=== PATIENT | female | born 1995 | race Caucasian/White ===

== ENCOUNTER 2021-05-08 13:04 | Outpatient (CLI) | payer OTHER, SELFPAY ==
--- NOTE | ~2021-05-08 | US_ITS ---
US OB <= 14 weeks fetus DATE: 05/08/2021 13:33 INDICATION: Unsure of last menstrual period. Estimated gestational age determination. TECHNIQUE: Real-time imaging via transabdominal approach COMPARISON: None FINDINGS: Uterus measures 11.1 cm height, 4.9 cm anteroposterior and 5.9 cm transverse dimension. A n ormally shaped intrauterine gestational sac with normal surrounding hyperechogenicity consistent with decidual reaction is identified. Normal amount of amniotic fluid. pole and yolk sac are identi fied. heart rate of 162 bpm. [place]-rump length measurement is 1.92 cm, consistent with 8 weeks 3 days +/- 5 days estimated gestati onal age and JOSE MIGUEL of 12/15/2021. IMPRESSION: Estimated gestational age of 8 weeks 3 days +/- 5 days; JOSE MIGUEL: 12/15/2021. Reviewed, dictated and finalized at [facility]. Reviewed, dictated and finalized at location [facility]. IMPRESSION: Estimated gestational age of 8 weeks 3 days +/- 5 days; JOSE MIGUEL: 12/16/19 22.
== END 2021-05-08 13:05 ==
PROVIDERS: Visit Provider Obstetrics & Gynecology
DX: Z36.87 Encounter for antenatal screening for uncertain dates (principal); Z3A.08 8 weeks gestation of pregnancy
CPT/HCPCS: 76801

== ENCOUNTER 2021-05-25 13:30 | Outpatient (CLI) | payer OTHER, SELFPAY ==
[2021-05-25 14:16] LABS: Basophils Absolute Auto 0.1 K/mm3 (0.0-0.1); Basophils Percent Auto 0.5 % (0.2-1.2); Eosinophils Absolute Auto 0.1 K/mm3 (0-0.3); Eosinophils Percent Auto 1.4 % (0-4.4); Hematocrit 38.9 % (37.0-47.0); Hemoglobin 13.1 g/dL (12.0-15.0); Immature Granulocyte Absolute 0.04 K/mm3 (0.00-0.031); Immature Granulocyte Percent A 0.4 % (0-0.5); Lymphocytes Absolute Auto 2.59 K/mm3 (0.9-3.2); Lymphocytes Percent Auto 25.6 % (18.3-44.2); Mean Corpuscular HGB Conc 33.7 g/dl (32-36); Mean Corpuscular Hemoglobin 31.4 pg (26-34); Mean Corpuscular Volume 93.3 fl (80-100); Mean Platelet Volume 11.5 fl (7.4-10.4); Monocytes Absolute Auto 0.7 K/mm3 (0.1-0.6); Monocytes Percent Auto 6.9 % (2.6-8.5); Neutrophils Absolute Auto 6.6 K/mm3 (1.3-6.7); Neutrophils Percent Auto 65.2 % (45.5-73.1); Platelet Count Result 175 k/mm3 (150-375); Red Blood Count 4.17 M/mm3 (4.2-5.4); White Blood Count 10.1 K/mm3 (4.5-10.0)
[2021-05-25 14:54] LABS: Vitamin D 25 Hydroxy 24.7 ng/mL
[2021-05-25 15:05] LABS: HIV 1/2 Ab P24 Ag Result Negative (Negative)
[2021-05-25 15:13] LABS: Hepatitis B Surface Antigen Negative (Negative); Rubella IgG Antibody 12.2 IU/ML
[2021-05-25 15:51] LABS: Hemoglobin A1C 4.9 % (<5.7)
[2021-05-28 09:30] LABS: Rapid Plasma Reagin Non-Reactive (NonReactive)
[2021-05-30 06:06] LABS: Hepatitis C RNA, Quant PCR <15 IU/mL
== END 2021-05-25 13:31 | disposition home or self-care (01) ==
PROVIDERS: Visit Provider Nurse Practitioner
DX: Z36.9 Encounter for antenatal screening, unspecified (principal)
CPT/HCPCS: 36415; 82306; 83036; 85025; 86592; 86703; 86762; 86850; 86900; 86901; 87340; 87522; G0432

== ENCOUNTER 2021-07-13 13:20 | Outpatient (CLI) | payer OTHER, SELFPAY ==
--- NOTE | ~2021-07-13 | US_ITS ---
EXAMINATION: US OB /maternal detail DATE: 07/13/2021 13:54 INDICATION: survey evaluation TECHNIQUE: Multiple obstetric sonographic images performed. FINDINGS: Comparison to ultrasound dated 05/08/2021 There is a single living fetus in breech presentation. The placenta is posterior without placenta pr evia. Placental margin is 2.8 cm to the cervix. Amniotic fluid volume is normal. cardiac activity and movement is noted with a heart rate of 138 beats per minute. The following anatomy was identified as normal: 4 chamber heart 3 vessel cord cord insertion kidneys urinary bladder stomach spine diaphragm ventricles cisterna magna cerebellum The following biometric data were obtained: BPD: 42mm corresponds to gestational age 18 weeks 6 days. Head circumference: 161 mm corresponds to gestational age 18 weeks 6 days. Abdominal circumference: 131 mm corresponds to gestational age 18 weeks 4 days. Femur length: 26 mm corresponds to gestational age 18 weeks 0 days. Head circumference to abdominal circumference ratio: 1.23 (normal range for expected gestational age is 1.09-1.27). Estimated weight: 238 grams +/- 36 grams using Hadlock method. IMPRESSION: 1: Single living intrauterine with an estimated gestational age of 17weeks 6days by initial ultrasound measurements, with an EDC of 12/15/2021 in breech presentation. Appropriate interval feta l growth. 2. Normal survey. Reviewed, dictated and finalized at location A. IMPRESSION: 1: Single living intrauterine with an estimated gestational age of 17 weeks 6days by initial ultrasound measurements, with an EDC of 12/15/2021 in br eech presentation. Appropriate interval growth. 2. Normal survey.
== END 2021-07-13 13:21 ==
PROVIDERS: Visit Provider Obstetrics & Gynecology
DX: Z36.9 Encounter for antenatal screening, unspecified (principal); Z3A.17 17 weeks gestation of pregnancy
CPT/HCPCS: 76805

== ENCOUNTER 2021-09-28 14:03 | Outpatient (CLI) | payer OTHER, SELFPAY ==
[2021-09-28 15:21] LABS: Hematocrit 34.4 % (37.0-47.0); Hemoglobin 11.3 g/dL (12.0-15.0); Mean Corpuscular HGB Conc 32.8 g/dl (32-36); Mean Corpuscular Hemoglobin 30.2 pg (26-34); Mean Platelet Volume 12.4 fl (7.4-10.4); Platelet Count Result 133 k/mm3 (150-375); Red Blood Count 3.74 M/mm3 (4.2-5.4); Red Cell Distribution Width 14.3 % (11.5-14.5); White Blood Count 10.7 K/mm3 (4.5-10.0)
[2021-09-28 15:36] LABS: Glucose 1 Hour PP 50gm Dose 152 mg/dL
[2021-09-28 15:54] LABS: Vitamin D 25 Hydroxy 23.8 ng/mL
[2021-09-28 16:18] LABS: HIV 1/2 Ab P24 Ag Result Negative (Negative)
== END 2021-09-28 14:04 | disposition home or self-care (01) ==
PROVIDERS: Visit Provider Obstetrics & Gynecology Gynecology
DX: Z34.92 Encounter for supervision of normal pregnancy, unspecified, second trimester (principal)
CPT/HCPCS: 36415; 82306; 82947; 85027; 86703; G0432

== ENCOUNTER 2021-10-06 09:23 | Outpatient (CLI) | payer OTHER, SELFPAY ==
[2021-10-06 09:48] LABS: Glucose Fasting 88 mg/dL
[2021-10-06 11:20] LABS: Glucose 1 Hour 139 mg/dL
[2021-10-06 12:08] LABS: Glucose 2 Hour 137 mg/dL
[2021-10-06 13:04] LABS: Glucose 3 Hour 109 mg/dL
== END 2021-10-06 09:24 | disposition home or self-care (01) ==
PROVIDERS: Visit Provider Obstetrics & Gynecology Gynecology
DX: O99.810 Abnormal glucose complicating pregnancy (principal); Z3A.00 Weeks of gestation of pregnancy not specified
CPT/HCPCS: 36415; 82951; 82952

== ENCOUNTER 2021-12-08 05:03 | Inpatient (IN) | payer OTHER, MEDICAID, SELFPAY ==
[2021-12-08] VITALS (197 sets, daily range): BP systolic 67–145; BP diastolic 34–94; PULSE 55–197; RESP 18; TEMP 36.1–37.9; O2SAT 84–100; BMI 43.3
[2021-12-08 06:00] LABS: Basophils Absolute Auto 0.1 K/mm3 (0.0-0.1); Basophils Percent Auto 0.5 % (0.2-1.2); Eosinophils Absolute Auto 0.2 K/mm3 (0-0.3); Eosinophils Percent Auto 1.4 % (0-4.4); Hematocrit 34.7 % (37.0-47.0); Hemoglobin 11.4 g/dL (12.0-15.0); Immature Granulocyte Percent A 0.8 % (0-0.5); Lymphocytes Percent Auto 21.2 % (18.3-44.2); Mean Corpuscular HGB Conc 32.9 g/dl (32-36); Mean Corpuscular Hemoglobin 29.1 pg (26-34); Mean Corpuscular Volume 88.5 fl (80-100); Mean Platelet Volume 12.3 fl (7.4-10.4); Monocytes Absolute Auto 0.8 K/mm3 (0.1-0.6); Monocytes Percent Auto 6.9 % (2.6-8.5); Neutrophils Absolute Auto 8.2 K/mm3 (1.3-6.7); Neutrophils Percent Auto 69.2 % (45.5-73.1); Platelet Count Result 146 k/mm3 (150-375); Red Blood Count 3.92 M/mm3 (4.2-5.4); Red Cell Distribution Width 14.8 % (11.5-14.5); White Blood Count 11.8 K/mm3 (4.5-10.0)
[2021-12-08] MEDS: LACTATED RINGERS 1,000 ML 125 ML IV CONT ×2 (06:08→11:48)
[2021-12-08] MEDS: OXYTOCIN 30 UNITS/NS 500 ML 30 UNITS/500 ML BAG IV CONT (06:09)
--- NOTE | 2021-12-08 06:26 | LDADM ---
This patient, Nancy Dumont, was admitted to Labor/Delivery/Recovery 104 on 12/08/21 at 05:03. Plans for labor, pain management and were discussed with patient. Patient/family oriented to hospital policies and general routines including ID bracelet, bed and alarms, visiting hours, pain management, procedures, bathroom and other care routines, personal items, smoking policy, room service/diet and guest tray routines, infant security routines, and visiting hours. Patient/Family are encouraged to report perceived risks to care and to ask questions if they do not understand what they are told or what they should do. See OBIX for further documentation.
[2021-12-08 06:52] LABS: HIV 1/2 Ab P24 Ag Result Negative (Negative)
[2021-12-08] MEDS: LACTATED RINGERS 1,000 ML 999 ML IV CONT (10:13)
--- NOTE | 2021-12-08 10:34 | WPDOBADMIT ---
Obstetrics - Admit Note Admission Note: record reviewed. No pertinent additions to the history and/or any subsequent changes in the physical findings that are not consistent with the expected course of the were found. Additions to the history and/or subsequent changes in the physical findings follow. Here for MIL. Cervix 2/70/-2 Anterior. AROM with clear fluid. FHTs reactive. Continue pitocin.
--- NOTE | 2021-12-08 10:40 | WPDANESEPPF ---
Anes - Initial Pre Proc Eval Procedure: labor epidural Date/Time: 12/08/21 10:40 Surgeon: Maria Elena Mehta MD Pre Op Diagnosis: labor pain Pre Op Diagnosis: IOL Patient Data Age: 26 Gender: F Height: 1.55 m Weight: 104 kg Last Vital Signs Temp 36.4 C 12/08/21 09:30 Pulse 74 12/08/21 10:38 BP 132/75 12/08/21 10:38 Pulse Ox 98 12/08/21 10:36 Allergies Allergy/AdvReac Type Severity Reaction Status Date / Time shellfish derived Allergy Severe Verified 11/08/15 21:14 latex Allergy Mild Verified 11/08/15 21:13 PINK SOAP Allergy Mild Uncoded 11/08/15 21:13 Home Medications Medication Instructions Recorded Confirmed Type PNV cmb#95-ferrous fumarate-FA 1 tablet PO DAILY 11/16/21 11/16/21 History [] ergocalciferol (vitamin D2) 1,250 mcg PO 12/08/21 History Laboratory Tests 12/08/21 12/08/21 12/08/21 05:53 05:53 05:53 WBC 11.8 K/mm3 H K/mm3 (4.5-10.0) RBC 3.92 M/mm3 L M/mm3 (4.2-5.4) Hgb 11.4 g/dL L g/dL (12.0-15.0) Hct 34.7 % L % (37.0-47.0) MCV 88.5 fl fl (80-100) MCH 29.1 pg pg (26-34) MCHC 32.9 g/dl g/dl (32-36) RDW 14.8 % H % (11.5-14.5) Plt Count 146 k/mm3 L k/mm3 (150-375) MPV 12.3 fl H fl (7.4-10.4) Immature Gran % (Auto) 0.8 % H % (0-0.5) Neut % (Auto) 69.2 % % (45.5-73.1) Lymph % (Auto) 21.2 % % (18.3-44.2) Divide % (Auto) 6.9 % % (2.6-8.5) Eos % (Auto) 1.4 % % (0-4.4) Baso % (Auto) 0.5 % % (0.2-1.2) Lymph # (Auto) 2.50 K/mm3 K/mm3 (0.9-3.2) Divide # (Auto) 0.8 K/mm3 H K/mm3 (0.1-0.6) Eos # (Auto) 0.2 K/mm3 K/mm3 (0-0.3) Baso # (Auto) 0.1 K/mm3 K/mm3 (0.0-0.1) Abs Immat Gran (auto) 0.10 K/mm3 H K/mm3 (0.00-0.031) Absolute Neuts (auto) 8.2 K/mm3 H K/mm3 (1.3-6.7) Absolute Nucleated RBC 0.0 K/mm3 K/mm3 (0.0-0.012) Nucleated RBC % 0.0 % % (0.0-0.2) RPR Pending HIV 1&2 Ab/P24 Ag 4thGn Blood Type O Positive Antibody Screen Negative 12/08/21 05:53 WBC RBC Hgb Hct MCV MCH MCHC RDW Plt Count MPV Immature Gran % (Auto) Neut % (Auto) Lymph % (Auto) Divide % (Auto) Eos % (Auto) Baso % (Auto) Lymph # (Auto) Divide # (Auto) Eos # (Auto) Baso # (Auto) Abs Immat Gran (auto) Absolute Neuts (auto) Absolute Nucleated RBC Nucleated RBC % RPR HIV 1&2 Ab/P24 Ag 4thGn Negative (Negative) Blood Type Antibody Screen Patient hx anesthesia problems: none Family hx anesthesia problems: none Results Review: All pre-operative results and documents have been reviewed as part of the pre-operative evaluation. [facility] Family History Family History Other Diabetes mellitus Social History Social History Smoking status: Never smoker Second hand tobacco smoke exposure: No Substance use: never Spiritual care concerns: No Anes - Eval Final PreProcedure Day of Procedure 12/08/21 10:40 Patient weight: morbidly obese ASA classification: III Anesthesia type and monitoring: regional epidural and standard monitoring Results Review: All pre-operative results and documents have been reviewed as part of the pre-operative evaluation. Informed Consent: The patient's anesthetic plan and its attendant risks and benefits were discussed with the patient/family/POA. Questions were solicited and answers provided to the satisfaction of the patient/family/POA.
[2021-12-08] MEDS: ONDANSETRON INJ 4 MG/2 ML VIAL IV PUSH (20:31)
[2021-12-08] MEDS: METHYLERGONOVINE MALEATE 0.2 MG/ML VIAL IM (21:29)
[2021-12-08] MEDS: OXYTOCIN 30 UNITS/NS 500 ML 30 UNITS/500 ML BAG 250 UNITS IV CONT (21:37)
--- NOTE | 2021-12-08 21:40 | PM.OBPRVD ---
OB - Delivery Note Procedure Delivery date: 12/08/21 Procedure: Induction method: AROM and Per Pitocin Protocol Delivery monitor: External FHT and Internal Uterine Route of delivery: Laceration Description: Perineal - 2nd Degree Delivery repair: vicryl (3-0) Specimen: Yes (placenta) Quantitative Blood Loss (ml): 825 Anesthesia type: Epidural (Local for repair) Disposition: PACU Complications: The initial uterine atony responded to uterine massage and Pitocin. Secondary bleeding after repair responded again to massage and then also given Methergine x 1. Baby Date of : 12/08/21 Weeks of gestation at delivery: 39 gender: Male Weight (pounds): 9 Weight (ounces): 2 presentation: vertex position: Right Occiput Anterior Placenta delivery description: Spontaneous Cord Vessel Description: 3 Vessels score one minute: 7 score five minutes: 9
--- NOTE | 2021-12-08 21:46 | PM.OBDSVD ---
DS: Admitting Diagnosis Discharge Date 12/10/21 Admitting Diagnosis IUP 39 wks for MIL DS: Discharge Diagnosis Discharge Diagnosis (1) (normal spontaneous vaginal delivery): Code(s): O80 - Encounter for full-term uncomplicated delivery Status: Acute OB - DS: Summary OB Procedures : NST and Ultrasound OB Procedures Intrapartum: Spontaneous Vag Delivery OB Procedures: : None Peripartum Data Infant Delivery Method: Natural Vaginal Laceration Description: Perineal - 2nd Degree complications: uterine atony Status at Discharge Functional status at discharge: independent ambulation Overall status at discharge: patient is progressing back to baseline Time Spent with Patient Time attestation: Total time spent providing and/or coordinating discharge services: DS: Data Data Completed and Pending Labs on day of discharge: Labs from last 24 hours 12/08/21 12/08/21 12/08/21 05:53 05:53 05:53 WBC RBC Hgb Hct MCV MCH MCHC RDW Plt Count MPV Immature Gran % (Auto) Neut % (Auto) Lymph % (Auto) [place] % (Auto) Eos % (Auto) Baso % (Auto) Lymph # (Auto) [place] # (Auto) Eos # (Auto) Baso # (Auto) Abs Immat Gran (auto) Absolute Neuts (auto) Absolute Nucleated RBC Nucleated RBC % RPR Pending HIV 1&2 Ab/P24 Ag 4thGn Negative Blood Type O Positive Antibody Screen Negative 12/08/21 05:53 WBC 11.8 H RBC 3.92 L Hgb 11.4 L Hct 34.7 L MCV 88.5 MCH 29.1 MCHC 32.9 RDW 14.8 H Plt Count 146 L MPV 12.3 H Immature Gran % (Auto) 0.8 H Neut % (Auto) 69.2 Lymph % (Auto) 21.2 [place] % (Auto) 6.9 Eos % (Auto) 1.4 Baso % (Auto) 0.5 Lymph # (Auto) 2.50 [place] # (Auto) 0.8 H Eos # (Auto) 0.2 Baso # (Auto) 0.1 Abs Immat Gran (auto) 0.10 H Absolute Neuts (auto) 8.2 H Absolute Nucleated RBC 0.0 Nucleated RBC % 0.0 RPR HIV 1&2 Ab/P24 Ag 4thGn Blood Type Antibody Screen Discharge Plan Discharge Attending physician on discharge: Maria Elena Mehta Discharging Clinician: Maria Elena Mehta Anticipated Discharge Date/Time: 12/10/21 21:48 Patient Disposition: Home, Self-Care Activity: may shower and pelvic rest Diet: regular Patient Instructions: Antibiotic Form Stand Alone Forms: General Discharge Information Follow-up/Referrals: Maria Elena Mehta MD [Physician] - 6 Weeks Discharge Medications: No Action PNV cmb#95-ferrous fumarate-FA [] 28 mg iron- 800 mcg Tablet 1 tablet PO DAILY RF: 0 ergocalciferol (vitamin D2) 1,250 mcg (50,000 unit) capsule 1,250 mcg PO RF: 0 Date of admission: 12/08/21 05:03 Primary Care Provider: PHYSICIAN,[employer] Admitting Provider: Maria Elena Mehta Attending physician on admission: Maria Elena Mehta Condition: Stable
[2021-12-08] MEDS: ACETAMINOPHEN 325 MG TABLET 650 MG PO (23:17)
[2021-12-09] VITALS (8 sets, daily range): BP systolic 99–122; BP diastolic 60–76; PULSE 93–121; RESP 16–18; TEMP 36–36.9; O2SAT 98–99
[2021-12-09] MEDS: IBUPROFEN 600 MG TABLET PO ×3 (00:41→16:12)
[2021-12-09 05:48] LABS: Hematocrit 27.1 % (37.0-47.0)
[2021-12-09] MEDS: MULTIVIT/MIN/PREN/FOL AC/IRON TABLET 1 TAB PO (08:11)
[2021-12-09] MEDS: POLYSACCHARIDE IRON COMPLEX 150 MG CAPSULE PO ×2 (08:11→16:12)
[2021-12-09] MEDS: DOCUSATE SODIUM 100 MG CAPSULE PO ×2 (08:12→16:12)
--- NOTE | 2021-12-09 09:38 | PM.OBPNVD ---
OB - PN: Subj Subjective Date/time seen: 12/09/21 09:38 Patient comments: no complaints and pain well controlled baby status: doing well OB - PN: Obj Data Labs CBC & Chem 7: 12/09/21 04:59 Labs: Laboratory Results - last 24 hr 12/09/21 04:59 Hgb 9.0 L Hct 27.1 L OB - PN A/P Plan day: 1 Plan: routine care Time Spent With Patient Time: Total time spent is greater than 50% in coordination of care (as documented) at patient's floor/unit and/or counseling patient: Exam : Bimanual exam- vagina & uterus: other (Uterus firm, nt @U)
--- NOTE | 2021-12-09 10:52 | WPDANLDPN2 ---
Anes-Prog Note L&D Date/Time: 12/09/21 10:52 Comfortable throughout: labor and delivery Neuraxial method: epidural Epidural/Spinal procedure site: clean & non-tender Neuro status: Neuro function grossly intact. Cardiovascular status: normal Respiratory status: normal Airway patency: baseline Mental status: baseline Post-Op hydration status: normal Vital Signs: Last Vital Signs Temp 97.7 F 12/09/21 08:00 Pulse 93 12/09/21 08:00 Resp 16 12/09/21 08:00 BP 103/60 12/09/21 08:00 Pulse Ox 99 12/09/21 08:00 Pain score (VAS): 1 I/O: Intake & Output 12/08/21 12/09/21 12/09/21 23:59 07:59 15:59 Output Total 1600 65 Balance -1600 -65 Post-procedural complaints: none Patient feedback: Patient satisfied with anesthetic care.
--- NOTE | 2021-12-09 12:54 | PCCCNOTE ---
Care Coordination. Patient referred to care coordination for financial/single parenting. Spoke with pt. at bedside. She plans to return home with her two children alone. Her mother lives nearby. She denies any financial assistance needs. She reports family has showered her with clothes for up to 12 months. She has all necessary baby care items and is setup with WIC in [place]. She denies any post- with previous child and denies any community resource needs.
[2021-12-10 07:30] VITALS: BP 133/74; PULSE 112; RESP 18; TEMP 37; O2SAT 98
[2021-12-10] MEDS: DOCUSATE SODIUM 100 MG CAPSULE PO ×2 (07:42→16:32)
[2021-12-10] MEDS: MULTIVIT/MIN/PREN/FOL AC/IRON TABLET 1 TAB PO (07:42)
[2021-12-10] MEDS: POLYSACCHARIDE IRON COMPLEX 150 MG CAPSULE PO ×2 (07:43→16:32)
[2021-12-10] MEDS: IBUPROFEN 600 MG TABLET PO ×2 (07:43→16:32)
--- NOTE | 2021-12-10 08:01 | PM.OBPNVD ---
OB - PN: Subj Subjective Date/time seen: 12/10/21 08:01 Patient comments: no complaints baby status: doing well OB - PN: Obj Data Labs CBC & Chem 7: 12/09/21 04:59 OB - PN A/P Plan day: 1 Plan: routine care, discharge home, follow up 6 weeks and other (Plans depoprovera) Time Spent With Patient Time: Total time spent is greater than 50% in coordination of care (as documented) at patient's floor/unit and/or counseling patient: Exam : Bimanual exam- vagina & uterus: other (Uterus firm, nt @U)
--- NOTE | 2021-12-10 08:57 | PC.NURSE ---
[id number] Introductions were made and consulted with patient to assess needs related to . Mother led conversation with her experience with feeding baby so far. Mother states she has had difficulty with latching infant with the nipple shield. Her history of was her milk never came in . She is discouraged that with her last pump session she only got one drop of colostrum. She also states she started pumping last night. ( was born 11/10/2023 @ 2112) Reviewed good handwashing when working with infant, breast, nipples and how to protect the nipples with a deep latch. Encouraged understanding the benefits of skin to skin, responding to feeding cues, frequencies of feeding 8-12 times in 24 hours (approximately 2-3 hours), duration of feedings, milk production, intake/output feeding sheet and signs of adequate intake. Discussed stimulating with skin to skin, hand expressing colostrum, touch and talking to infant to encourage eating at the breast. Breast pump provided prior to RN shift due to ineffective . Reviewed information regarding pump care, hand washing, nipple care and pumping 8 times in 24 hours (1-2 at night) for 10-15 minutes. Collection and storage of breastmilk per mom and baby guide. Reviewed recording pumping schedule on the feeding sheet. Mother voiced understanding responding to early feeding cues, may need to stimulating infant approximately 2-3 hours from the start of the last feeding, calling for assistance if the infant does not latch or there discomfort . Reported to primary RN.
[2021-12-10] MEDS: medroxyPROGESTERone ACETATE IM 150 MG/ML SYR IM (11:49)
[2021-12-10 13:00] LABS: Rapid Plasma Reagin Non-Reactive (NonReactive)
--- NOTE | 2021-12-10 13:57 | PC.NURSE ---
[id number] Introductions were made and consulted with patient to assess needs related to . Mother led conversation with her experience with feeding baby so far and plans to , pump and supplement. Mother works well with her . Reviewed good handwashing when working with infant, breast, nipples and how to protect the nipples with a deep latch. Encouraged understanding the benefits of skin to skin, responding to feeding cues, frequencies of feeding 8-12 times in 24 hours (approximately 2-3 hours), duration of feedings, milk production, intake/output feeding sheet and signs of adequate intake. Discussed stimulating infant with skin to skin, hand expressing colostrum, touch and talking to infant to encourage eating at the breast. Reviewed positioning and alignment, supporting breast, off-centered (asymmetrical latch) and leading with the chin with big open wide gape. Infant latched to the left breast in football position and appears to have a latch less than 130-150 degrees. Mother denies multiple times that she has no discomfort. RN detaches due to not visualizing good rocking motion or suck/swallow ratios. Education given to mother of how to visualize suck/swallow ratios and drinking at the breast. Nipple care reviewed with optimal latching, good positioning, comfort and healing with warm, wet washcloth to rinse breast and leave to air-dry, colostrum may be left on nipples to dry but have clean hands when touching the nipple/breast. Resources used to facilitate learning were used from the visual handout/ tool/mom and baby guide. Multiple practice attempts were made. latch shallow and effectively to the right breast in football position. was able to maintain latch with no discomfort. Infant became sleepy and reluctant with a shallow latch. Supplement was given, then pumping to stimulate breast. Mother voiced understanding responding to feeding cues, may need to stimulating infant approximately 2-3 hours from the start of the last feeding, calling for assistance if the infant does not latch or there discomfort . Reported to primary RN.
--- NOTE | 2021-12-10 18:47 | PC.NURSE ---
Patient viewed the discharge video Mother & Baby Care, The First Two Weeks . Patient was given the opportunity and encouraged to ask questions. Patient verbalized understanding of information shared and has been given the mother/baby guide for home reference.
[2021-12-11 10:58] VITALS: BP 138/83; PULSE 108; RESP 20; TEMP 36.9; O2SAT 100
== END 2021-12-10 19:25 | disposition home or self-care (01) | DRG 806 ==
LOC: ANHLDR 21:48 → ANHOB2 12-09 01:55
PROVIDERS: Admitting Provider Obstetrics & Gynecology Gynecology; Visit Provider Obstetrics & Gynecology Gynecology
DX: O70.1 Second degree perineal laceration during delivery (principal); O72.1 Other immediate postpartum hemorrhage; Z37.0 Single live birth; Z3A.39 39 weeks gestation of pregnancy
CPT/HCPCS: 36415; 85014; 85018; 85025; 86592; 86703; 86850; 86900; 86901; 88307; A9270; G0432; J1050; J2210; J2405; J2590; J2795; J7120

== ENCOUNTER 2022-03-15 20:31 | Emergency (ER) | payer OTHER, MEDICAID, SELFPAY ==
--- NOTE | ~2022-03-15 | XR_ITS ---
EXAMINATION: XR chest 1V portable INDICATION: Respiratory distress TECHNIQUE: Portable AP chest at 2248 hours COMPARISON: 10/06/2019 FINDINGS: The lungs are free of acute opacities. No pleural effusion or pneumothorax. The cardiomedia stinal silhouette is normal. The visualized bones and soft tissues are unremarkable. IMPRESSION: 1. No acute cardiopulmonary abnormality. Reviewed, dictated and finalized at location F.
[2022-03-15 20:37] VITALS: BP 117/84; PULSE 102; RESP 18; TEMP 36.6; O2SAT 100
--- NOTE | 2022-03-15 23:00 | ED.ALLEREA ---
HPI - Allergic Reaction General Chief complaint: Anxiety Stated complaint: pain to arm and fingers, skin pain after depo Time Seen by Provider: 03/15/22 22:42 History of Present Illness HPI narrative: 26-year-old female presents after she got a Depo shot today, and then started feeling like her throat was very dry, she felt tingling in her hands and felt like there was a rash, and seemed to have some breathing. She has not taken any medications for this, after several hours she decided to come into the hospital. She is feeling better now that she is here. No nausea vomiting or diarrhea. Related Data Home Medications Medication Instructions Recorded Confirmed vit no.95-ferrous 1 tablet PO DAILY 11/16/21 11/16/21 fumarate 28 mg-folic acid 800 mcg tablet () ergocalciferol (vitamin D2) 1,250 1,250 mcg PO 12/08/21 mcg (50,000 unit) capsule Allergies Allergy/AdvReac Type Severity Reaction Status Date / Time shellfish derived Allergy Severe Verified 11/08/15 21:14 latex Allergy Mild Verified 11/08/15 21:13 PINK SOAP Allergy Mild Uncoded 11/08/15 21:13 Review of Systems Review of Systems: CONST: No fever. HEENT: Dry throat C/V: No chest pain RESP: No cough GI: No nausea vomiting or diarrhea : No dysuria. M/S: Feeling of tingling in hands SKIN: No rash. NEURO: Tingling in hands PSYCH: Anxious PMFSH Past Medical History Medical History (Updated 03/16/22 @ 02:08 by Christie Guy MD) No significant medical problems Family History Family History Other Diabetes mellitus Social History Social History Smoking status: Never smoker Second hand tobacco smoke exposure: No Substance use: never Spiritual care concerns: No Exam Narrative: EXAMINATION OF ORGAN SYSTEMS/BODY AREAS: Constitutional: Vital signs per nursing GENERAL:[No acute distress, non-toxic appearing.] HEAD: Normal with no signs of head trauma. EYES: EOMI, conjunctiva normal ENT: Normal oropharynx without any signs of angioedema, normal sounding voice, no stridor LUNGS: Nonlabored breathing. Clear to auscultation bilaterally HEART: [Regular rate and rhythm] ABD: [Soft], [nontender to palpation] EXT: Normal range of motion SKIN: [No rashes or lesions.] NEURO: [Alert and oriented x 3. No gross focal sensory or strength deficits.] PSYCH: Appears slightly anxious Course Vital Signs Vital signs: Vital Signs Temperature 97.9 F 03/15/22 20:37 Pulse Rate 102 H 03/15/22 20:37 Respiratory Rate 18 03/15/22 20:37 Blood Pressure 117/84 03/15/22 20:37 Pulse Oximetry 100 03/15/22 20:37 Oxygen Delivery Room Air 03/15/22 20:37 Temperature 97.9 F 03/15/22 20:37 Pulse Rate 99 03/15/22 23:27 Respiratory Rate 20 03/15/22 23:27 Blood Pressure 111/85 03/15/22 23:27 Pulse Oximetry 97 03/15/22 23:27 Oxygen Delivery Room Air 03/15/22 20:37 MDM - Allergic Reaction MDM Narrative Medical decision making narrative: MEDICAL DECISION MAKING AND COURSE IN THE ED WITH INTERPRETATION/REVIEW OF DIAGNOSTIC STUDIES: Electronic medical record was reviewed. Patient presented to the ED with a complaint of [possible allergic reaction] versus anxiety Vitals [were within acceptable limits]. Physical exam revealed [slightly anxious patient without any evidence of airway compromise, abdominal tenderness, or anaphylaxis]. Based on the patient's history and physical exam, my differential includes but is not limited to [allergic reaction, anxiety attack]. [Patient was given benadryl, famotidine, steroids]. On re-evaluation, the patient was feeling improved. Chest x-ray is normal. She has not had worsening of symptoms here and is stable for discharge and will go home with benadryl, famotidine, and prednisone and followup with PCP, return for further issues. Patient verbalizes understanding. Proc
[2022-03-15] MEDS: predniSONE 20 MG TABLET 40 MG PO (23:12)
[2022-03-15] MEDS: FAMOTIDINE 20 MG TABLET PO (23:12)
[2022-03-15] MEDS: diphenhydrAMINE HCl CAP 25 MG CAPSULE 50 MG PO (23:13)
[2022-03-15 23:27] VITALS: BP 111/85; PULSE 99; RESP 20; O2SAT 97
== END 2022-03-15 23:25 | disposition home or self-care (01) ==
PROVIDERS: Emergency Provider Emergency Medicine
DX: R06.4 Hyperventilation (principal); T38.5X5A Adverse effect of other estrogens and progestogens, initial encounter
CPT/HCPCS: 71045; 99283; A9270; J7512

== ENCOUNTER 2022-08-23 13:11 | Emergency (ER) | payer OTHER, MEDICAID, SELFPAY ==
--- NOTE | 2022-08-23 13:12 | ED.URI ---
HPI - URI/Sore Throat General Chief Complaint: Upper Respiratory Infection Stated Complaint: uri Time Seen by Provider: 08/23/22 13:11 Source: patient Mode of arrival: ambulatory Limitations: no limitations History of Present Illness HPI Narrative: Nancy is a 26-year-old female patient presenting to the clinic today with complaints of fever, sore throat, cough, and congestion x1 day. She reports no one else is sick currently at home. 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 She also has redness and swelling to her right eye /eyelid. Has been seen by her PCP for this and was prescribed TobraDex and is waiting for the pharmacy to fill this. MD elicited complaint: sore throat and nasal congestion Related Data Allergies Allergy/AdvReac Type Severity Reaction Status Date / Time shellfish derived Allergy Severe Verified 11/08/15 21:14 latex Allergy Mild Verified 11/08/15 21:13 PINK SOAP Allergy Mild Uncoded 11/08/15 21:13 Review of Systems Review of Systems: Pertinent positives per HPI. Patient denies any rash, headache, visual changes, dizziness, shortness of breath, chest pain, palpitations, nausea, vomiting, diarrhea, constipation, abdominal pain, or any urinary issues. PMFSH Past Medical History Medical History No significant medical problems Family History Family History Other Diabetes mellitus Social History Social History Smoking status: Never smoker Second hand tobacco smoke exposure: No Substance use: never Spiritual care concerns: No Comments At the time of my signature, I reviewed and agree with the nursing past medical, surgical, social, and family history. There is no relevant family history pertinent to the patient complaint. Exam Narrative: General: Well-developed, well nourished, in no apparent distress Head: Normocephalic, atraumatic Eyes: Pupils equally round and reactive to light bilaterally, EOM intact, left sclera and conjunctive clear, right sclera and conjunctiva injected-no discharge, right upper eyelid swollen and red Ears: TMs intact and clear, ear canals clear, no drainage, grossly hearing normal. Nose: Nares patent, clear nasal discharge, no inflammation, no sinus tenderness. Mouth: Oral pharynx without lesions or masses, good dentition, MMM. oropharynx red with bilateral tonsillar swelling Neck: Supple, trachea midline, mild enlargement of anterior cervical nodes, no thyroid masses or goiter palpable. Cardio: Regular rate and rhythm, s1 and s2 normal, no murmur appreciated. Resp: Clear to auscultation bilaterally, no rhonchi, rales, wheezing or rubs Course Course Emergency Course: Portions of this record may have been created with voice recognition software. Level of Care: Express Care Visit Vital Signs Vital signs: Vital Signs Temperature 38.4 C H 08/23/22 13:22 Pulse Rate 112 H 08/23/22 13:22 Respiratory Rate 16 08/23/22 13:22 Blood Pressure 126/80 08/23/22 13:22 Pulse Oximetry 99 08/23/22 13:22 Oxygen Delivery Room Air 08/23/22 13:22 Temperature 38.4 C H 08/23/22 13:22 Pulse Rate 112 H 08/23/22 13:22 Respiratory Rate 16 08/23/22 13:22 Blood Pressure 126/80 08/23/22 13:22 Pulse Oximetry 99 08/23/22 13:22 Oxygen Delivery Room Air 08/23/22 13:22 Vital signs reviewed MDM - URI/Sore Throat MDM Narrative Medical decision making narrative: At the time of visit patient is resting comfortably on the exam table. COVID, influenza, and strep test were obtained and were negative in the clinic today. I suspect patient has viral URI/ pharyngitis. Will send strep for culture. Supportive measures were discussed with the patient she voiced understanding of discharge instructions and agrees to treatment plan. P
[2022-08-23 13:22] VITALS: BP 126/80; PULSE 112; RESP 16; TEMP 38.4; O2SAT 99
== END 2022-08-23 14:10 | disposition home or self-care (01) ==
PROVIDERS: Emergency Provider Nurse Practitioner Family
DX: J02.9 Acute pharyngitis, unspecified (principal); H01.001 Unspecified blepharitis right upper eyelid; B34.9 Viral infection, unspecified; Z20.822 Contact with and (suspected) exposure to COVID-19
CPT/HCPCS: 87081; 87426; 87804; 87880; 99213; C9803; G0463

== ENCOUNTER 2022-11-17 17:02 | Emergency (ER) | payer OTHER, SELFPAY ==
[2022-11-17 17:12] VITALS: BP 115/67; PULSE 116; RESP 18; TEMP 38.2; O2SAT 99
[2022-11-17 17:14] VITALS: BP 115/67; PULSE 116; RESP 18; TEMP 38.2; O2SAT 99
--- NOTE | 2022-11-17 17:33 | ED.GENADULT ---
HPI - General Adult General Chief complaint: Upper Respiratory Infection Stated complaint: Sore Throat Source: patient Mode of arrival: ambulatory Limitations: no limitations History of Present Illness HPI narrative: Patient presents for evaluation of sore throat. Symptom onset today. Symptoms started in the morning and progressively worsened since that time. She reports chills but denies any fever, nausea, vomiting, diarrhea, cough, shortness of breath, otalgia. No recent sick contacts to her knowledge. She tried taking Tylenol for symptoms. She has a history of strep pharyngitis and this feels similar. She occasionally smokes cigarettes. No additional complaints or concerns. Related Data Home Medications Medication Instructions Recorded Confirmed calcium citrate 200 mg tablet PO 11/17/22 [id number] D3 200 [id number] tablet (ADVANCED Calcium) medroxyprogesterone 150 mg/mL mg IM 11/17/22 intramuscular suspension Allergies Allergy/AdvReac Type Severity Reaction Status Date / Time shellfish derived Allergy Severe Swelling Verified 11/17/22 17:13 latex Allergy Mild Swelling Verified 11/17/22 17:13 PINK SOAP Allergy Mild Hives Uncoded 11/17/22 17:13 Review of Systems Review of Systems: CONSTITUTIONAL: Reports chills. Denies fever or sweats. EYES: Denies visual changes, redness, or discharge. ENT: Reports sore throat. Denies rhinorrhea, congestion or otalgia. CARDIOVASCULAR: Denies chest pain, palpitations, or edema. RESPIRATORY: Denies cough or dyspnea. GASTROINTESTINAL: Denies abdominal pain, nausea, vomiting, or diarrhea. GENITOURINARY: Denies dysuria or hematuria. SKIN: Denies rash or itching. MUSCULOSKELETAL: Denies back pain, joint pain, or myalgia. NEUROLOGIC: Denies headache, numbness, dizziness, or weakness. PSYCHIATRIC: Denies anxiety or depression. [facility] Past Medical History Medical History (Updated 11/17/22 @ 17:35 by Linus Bean, HEATHER, CHRISSY) No significant medical problems Surgical History Surgical History No pertinent past surgical history Family History Family History Mother Family history non-contributory Other Diabetes mellitus Social History Social History Smoking status: Current some day smoker Substance use: never Gender identity (if verbalized by the patient): Female Spiritual care concerns: No Exam Narrative: GENERAL: Well-appearing, well-nourished, and in no acute distress. HEAD: Normocephalic, atraumatic. EYES: PERRLA and EOMI. ENT: Nares clear, no rhinorrhea or epistaxis. Mucous membranes moist. Bilateral tonsillar enlargement and erythema without exudate. Uvula is midline.. Bilateral TMs pearly perea nonbulging NECK: Supple. No adenopathy or masses. No carotid bruits or JVD CHEST: Clear to auscultation. No respiratory distress. No wheezes rales or rhonchi HEART: Regular rate and rhythm. No murmur heard. Normal peripheral pulses. ABDOMEN: Soft, nontender, nondistended, normal active bowel sounds. EXTREMITIES: Normal range of motion. No edema. SKIN: Warm, dry, no rash. NEURO: No focal deficits. Alert and oriented x3. PSYCH: Normal mood and affect. Course Course Emergency Course: This is a 26-year-old female who presented for evaluation of sore throat. Rapid strep positive. Treat with amoxicillin. No evidence of peritonsillar abscess. Increase hydration. [id number] agents for symptom management. Follow up with primary provider. Go to the ER for difficulty breathing or swelling. Patient in agreement with plan of care. Level of Care: Express Care Visit Vital Signs Vital signs: Vital Signs Temperature 38.2 C H 11/17/22 17:12 Pulse Rate 116 H 11/17/22 17:12 Respiratory Rate 18 11/17/22 17:12 Blood Pressure 115/67
== END 2022-11-17 17:40 | disposition home or self-care (01) ==
PROVIDERS: Emergency Provider Nurse Practitioner
DX: J02.0 Streptococcal pharyngitis (principal); F17.200 Nicotine dependence, unspecified, uncomplicated
CPT/HCPCS: 87880; 99213; G0463

== ENCOUNTER 2023-04-30 08:47 | Outpatient (CLI) | payer OTHER, SELFPAY ==
[2023-04-30 20:31] LABS: Vitamin D 25 Hydroxy 22.4 ng/mL
[2023-04-30 21:09] LABS: Cholesterol 185 mg/dL (0-200); HDL Direct 39 mg/dL; Triglycerides 88 mg/dL (<150)
[2023-04-30 21:20] LABS: LDL Cholesterol Direct 112 mg/dL
[2023-04-30 21:42] LABS: Thyroid Stimulating Hormone 0.987 uIU/mL (0.465-4.680)
== END 2023-04-30 08:48 | disposition home or self-care (01) ==
LOC: ANHGOSHLAB 08:53
PROVIDERS: Visit Provider Obstetrics & Gynecology Gynecology
DX: Z01.419 Encounter for gynecological examination (general) (routine) without abnormal findings (principal); E55.9 Vitamin D deficiency, unspecified
CPT/HCPCS: 36415; 80061; 82306; 83036; 84439; 84443

== ENCOUNTER 2024-04-14 00:16 | Day surgery (SDC) | payer OTHER, MEDICAID, SELFPAY ==
[2024-04-08 09:41] VITALS: BMI 38.5
--- NOTE | 2024-04-08 09:43 | PC.NURSE ---
Addendum entered by Jorge Barker RN 04/08/24 09:59: Nancy was told by me nothing to eat or drink after midnight. Original Note: Report to the Outpatient Waiting Room, entrance under the green pavilion located off [facility], at time _0600_ on date _[id number]_. Planned Procedure Time: _0730_. Time changes happen often and if your time is changed the preop area will call you the afternoon before. - You and your visitor will be asked to self-screen and do not enter if you have any COVID symptoms. - A mask is optional within the hospital at this time. Patients may have clear liquids (water, carbonated beverages, clear teas, apple juice) until 3 hours prior to surgery with a maximum of 20 ounces. - No food from midnight until time of surgery Take the following medications with a SIP of water the morning of surgery: None DO NOT STOP ANY OF YOUR OTHER PRESCRIPTION MEDICATIONS PRIOR TO SURGERY ?EXCEPT THE FOLLOWING Medications to discontinue per physician Calcium Date to take last [id number] Please no make-up, nail costa rican, hairspray, perfume, deodorant, or body powder the day of surgery. No jewelry (including any body piercings) or valuables the day of surgery, leave them at home. Please take a shower or bath the night before, or the morning of, surgery with an antibacterial soap. Wear comfortable, loose fitting clothing. - Jewelry must be removed prior to entering the operating room. Rings and piercings that are not removed may be cut off. - The hospital will not accept responsibility for valuables. - Please leave all valuables, including medications, at home the day of surgery. If you are going home after surgery, a licensed sales route driver must drive you home. - NO public transportation without another adult if you receive anesthesia. - We recommend that an adult stay with you for 24 hours following discharge. - We also recommend that you do not drive, make important decision, drink alcoholic beverages, or take any drugs that were not prescribed by your health care provider for at least 24 hours after your discharge time. Follow any additional instructions given to you from your surgeon. If you or anyone in your household have experienced Covid symptoms in the past week, please notify your surgeon or the nurse liaison at the phone number below for possible testing. Telephone instructions given to _Nancy__and asked if any additional questions and then verbalized understanding. Patient advised to call surgeon office or pre surgery nurse liaison [phone] if any additional questions.
[2024-04-14 06:17] VITALS: BP 114/79; PULSE 89; RESP 14; TEMP 36.2; O2SAT 97
[2024-04-14 06:29] VITALS: BMI 40.2
--- NOTE | 2024-04-14 06:37 | PM.HPGS ---
History of Present Illness History of Present Illness Chief complaint: ganglion right wrist Narrative: Patient seen and examined in pre-operative holding area. No interval change in medical history or symptoms. Patient recalls previous discussion of benefits and alternatives to procedure. Continues to desire to proceed with right dorsal wrist ganglion excision. Reviewed procedure, post-op expectations and risks including but not limited to bleeding, infection, injury to tendon/nerve/vessel, decreased hand function, stiffness, RSD, no change or worsening of symptoms, recurrence. I discussed the possible use of assistants and their participation in the case. Patient stated understanding and signed the consent form wishing to proceed. Review of Systems Review of Systems: All systems reviewed & are unremarkable except as noted in HPI and below [facility] Past Medical History Medical History (Updated 04/14/24 @ 06:54 by Dillan Weinstein MD) Morbid obesity No significant medical problems Seizures Stopped treatment Bryan year in HS. No seizures since. Surgical History Surgical History No pertinent past surgical history Family History Family History Mother Asthma Sibling Asthma Depression Anxiety Grandparent Asthma Breast cancer Diabetes mellitus Hypertension Social History Social History Years smoked: 14 Smoking status: Current every day smoker Tobacco type: cigarettes Alcohol intake: current Alcohol use details: occasionally Substance use: never Lack of Transportation: No Lack of Food: Never True Current Housing: I Have Housing Concerned About Future Housing: No Difficulty Paying Gas/Electric Bills: No Difficulty Paying for Meds: No Currently Unemployed: No Education: Trade/Vocational Certificate Difficulty w/ Childcare or Family Care: No Living arrangements: with family Occupation/Education: occupation Additional occupation/education comments: [employer] Gender identity (if verbalized by the patient): Female Spiritual care concerns: No Agree to blood products: Yes Meds Home Medications and Allergies Home Medications Medication Instructions Recorded Confirmed Type calcium carbonate 600 mg PO DAILY 07/28/23 04/14/24 History etonogestrel 0.12 mg-ethinyl 1 vag ring vaginal ONCE 01/28/24 04/08/24 History estradiol 0.015 mg/24 hr vaginal ring (NuvaRing) Allergies Allergy/AdvReac Type Severity Reaction Status Date / Time shellfish derived Allergy Severe Swelling Verified 04/14/24 06:27 latex Allergy Mild Swelling Verified 04/14/24 06:27 PINK SOAP Allergy Mild Hives Uncoded 04/08/24 09:34 Exam Narrative: unchnaged Assessment and Plan Assessment and plan (1) Ganglion cyst of dorsum of right wrist: Code(s): M67.431 - Ganglion, right wrist Status: Acute Assessment and Plan: cont as above
--- NOTE | 2024-04-14 06:38 | W.PM.PROC2 ---
Procedure Note - Detailed Date of Procedure 04/14/24 Pre-op Diagnosis ganglion right wrist Post-op Diagnosis Same Procedure Performed right dorsal wrist ganlgion excision Surgeon Abhi Giles MD Translator And Interpreter marleny galvin pa-c Anesthesia MAC Description of Procedure INFORMED CONSENT: The patient was seen and examined and marked in the pre-op area.? The patient signed the consent form. PROCEDURE IN DETAIL:The patient taken back to OR on the stretcher in supine position. Time out performed with anesthesia, surgeon and staff agreeing on patient's name site and surgery to be performed SCDs were placed on the lower extremities and inflated. A tourniquet was placed on {right} upper extremity and antibiotics given IV After anesthesia administered sedation I injected {6}cc 1%lido with epi and 0.5% marcaine plain at the operative site The?{right upper extremity}?was prepped and draped in sterile fashion the??{right upper extremity} was? exsanguinated proximal to the mass with Esmarch bandage and tourniquet inflated to 250mmHg I proceeded with making a longitudinal incision over the right dorsal wrist mass through skin and dermis with a 15 blade scalpel. Littler scissors were used to spread through subcutaneous tissue down to the extensor tendon sheath. The mass was identified in coming through the extensor digitorum communis tendons of the 3rd and 4th finger. I proceeded with dissection between these tendons around the mass which appeared to be coming from the mid carpal joint. I circumferentially dissected around the mass with 15 blade scalpel excising it off of the dorsal wrist capsule. I used bipolar cautery to cauterize the base and edges of the excision. I irrigated with normal saline. I repaired the capsular defect with 4-0 Vicryl suture. 4-0 Vicryl and 4-0 Monocryl was used for dermal and subcuticular closure. A dressing of Dermabond, 4x4, arthur, and a volar splint was applied for patient safety, security, and comfort and secured with an lexis bandage after the tourniquet was let down noting the hand was warm and well perfused. The patient was then awaken from anesthesia and transferred to the recovery room in stable condition.? Complications - none EBL- 0cc Disposition - home in stable conditions marleny galvin pa-c was essential for positioinng, retraction, closure and dressing placement [facility] Billing Surgery - Charge Forward: Surgery Billing ([id number] for marleny)
[2024-04-14] MEDS: LACTATED RINGERS 1,000 ML 30 ML IV CONT (06:45)
[2024-04-14 06:48] LABS: BEDSIDEPREGUCG Negative
--- NOTE | 2024-04-14 06:53 | WPDANESEPPF ---
Anes - Initial Pre Proc Eval Procedure: Operation Date: 04/14/24 07:30 Proposed Procedures p Right Dorsal Wrist Ganglion Excision - Abhi Giles MD Date/Time: 04/14/24 06:53 Surgeon: Abhi Giles MD Pre Op Diagnosis: ganglion right wrist Patient Data Age: 28 Gender: F Height: 1.57 m Weight: 99.9 kg Last Vital Signs Temp 36.2 C L 04/14/24 06:17 Pulse 89 04/14/24 06:17 Resp 14 04/14/24 06:17 BP 114/79 04/14/24 06:17 Pulse Ox 97 04/14/24 06:17 O2 Del Method Room Air 04/14/24 06:17 Allergies Allergy/AdvReac Type Severity Reaction Status Date / Time shellfish derived Allergy Severe Swelling Verified 04/14/24 06:27 latex Allergy Mild Swelling Verified 04/14/24 06:27 PINK SOAP Allergy Mild Hives Uncoded 04/08/24 09:34 Home Medications Medication Instructions Recorded Confirmed Type calcium carbonate 600 mg PO DAILY 07/28/23 04/14/24 History etonogestrel 0.12 mg-ethinyl 1 vag ring vaginal ONCE 01/28/24 04/08/24 History estradiol 0.015 mg/24 hr vaginal ring (NuvaRing) Laboratory Tests 04/14/24 06:25 POC Urine HCG, Qual Negative POC Ur Preg QC Yes Patient hx anesthesia problems: none Family hx anesthesia problems: none Results Review: All pre-operative results and documents have been reviewed as part of the pre-operative evaluation. [facility] Past Medical History Medical History (Updated 04/14/24 @ 06:54 by Dillan Weinstein MD) Morbid obesity No significant medical problems Seizures Stopped treatment Bryan year in . No seizures since. Surgical History Surgical History No pertinent past surgical history Family History Family History Mother Asthma Sibling Asthma Depression Anxiety Grandparent Asthma Breast cancer Diabetes mellitus Hypertension Social History Social History Years smoked: 14 Smoking status: Current every day smoker Tobacco type: cigarettes Alcohol intake: current Alcohol use details: occasionally Substance use: never Lack of Transportation: No Lack of Food: Never True Current Housing: I Have Housing Concerned About Future Housing: No Difficulty Paying Gas/Electric Bills: No Difficulty Paying for Meds: No Currently Unemployed: No Education: Trade/Vocational Certificate Difficulty w/ Childcare or Family Care: No Living arrangements: with family Occupation/Education: occupation Additional occupation/education comments: [employer] Gender identity (if verbalized by the patient): Female Spiritual care concerns: No Agree to blood products: Yes Anes - Eval Final PreProcedure Day of Procedure 04/14/24 06:53 Patient weight: morbidly obese Heart: regular rate and rhythm Lungs: clear to auscultation Airway: Mallampati scale class II Neurological: alert and oriented Last oral intake: >/= 8 hours ASA classification: III Emergent: no Anesthetic plan: proceed Anesthesia type and monitoring: general GIVS and standard monitoring Results Review: All pre-operative results and documents have been reviewed as part of the pre-operative evaluation. Informed Consent: The patient's anesthetic plan and its attendant risks and benefits were discussed with the patient/family/POA. Questions were solicited and answers provided to the satisfaction of the patient/family/POA.
[2024-04-14] MEDS: ceFAZolin 2 GM/D5W 50 ML 2 GM/50 ML BAG IVPB (07:18)
[2024-04-14] MEDS: LIDO 1%/EPINEPHRINE 1:100,000 50 ML VIAL 10 ML INFILTRATE (07:37)
[2024-04-14 07:49] VITALS: BP 114/78; PULSE 90; RESP 12; O2SAT 94
[2024-04-14 08:15] VITALS: BP 108/76; PULSE 84; RESP 20
[2024-04-14 08:35] VITALS: BP 107/62; PULSE 75; RESP 20
== END 2024-04-14 08:42 | disposition home or self-care (01) ==
PROVIDERS: PCP Clinical Nurse Specialist; Visit Provider Plastic Surgery
PROC: (CPT 25111; principal; 2024-04-14 07:30)
DX: M67.431 Ganglion, right wrist (principal); F17.210 Nicotine dependence, cigarettes, uncomplicated; E66.01 Morbid (severe) obesity due to excess calories; Z68.41 Body mass index [BMI] 40.0-44.9, adult
CPT/HCPCS: 25111; 88305; J0690; J2250; J2704; J3010; J7120

== ENCOUNTER 2024-11-10 16:24 | Emergency (ER) | payer OTHER, MEDICAID, SELFPAY ==
--- NOTE | 2024-11-10 16:30 | ED_ITS ---
HPI - URI/Sore Throat General Chief Complaint: Upper Respiratory Infection Stated Complaint: congested,tired,cough Time Seen by Provider: 11/10/24 16:31 Source: patient Mode of arrival: ambulatory Limitations: no limitations History of Present Illness HPI Narrative: Beto is a 28-year-old female patient presenting to the clinic today with complaints of cough, fatigue, sore throat, and nasal congestion, and general body aches times 2 days. She reports no chest pain or shortness of breath. States a lot of coworkers are sick with the influenza MD elicited complaint: sore throat and nasal congestion Related Data Home Medications ?Medication ?Instructions ?Recorded ?Confirmed ?Last Taken ?Type calcium carbonate 600 mg PO DAILY 07/28/23 11/10/24 04/11/24 History etonogestrel 0.12 mg-ethinyl 1 vag ring vaginal ONCE 01/28/24 11/10/24 Unknown History estradiol 0.015 mg/24 hr vaginal ring (NuvaRing) Allergies Allergy/AdvReac Type Severity Reaction Status Date / Time shellfish derived Allergy Severe Swelling Verified 11/10/24 16:26 latex Allergy Mild Swelling Verified 11/10/24 16:26 PINK SOAP Allergy Mild Hives Uncoded 11/10/24 16:26 Review of Systems Review of Systems: Pertinent positives per HPI. Patient denies any fever, chills, rash, visual changes, dizziness, shortness of breath, chest pain, palpitations, nausea, vomiting, diarrhea, constipation, abdominal pain, or any urinary issues. [facility] Past Medical History Medical History Morbid obesity Seizures Stopped treatment Bryan year in . No seizures since. No significant medical problems Surgical History Surgical History No pertinent past surgical history Family History Family History Mother Asthma Sibling Asthma Depression Anxiety Grandparent Asthma Breast cancer Diabetes mellitus Hypertension Social History Social History Years smoked: 14 Smoking status: Current every day smoker Tobacco type: cigarettes Alcohol intake: current Alcohol use details: occasionally Substance use: never Lack of Transportation: No Lack of Food: Never True Current Housing: I Have Housing Concerned About Future Housing: No Difficulty Paying Gas/Electric Bills: No Difficulty Paying for Meds: No Currently Unemployed: No Education: Trade/Vocational Certificate Difficulty w/ Childcare or Family Care: No Living arrangements: with family Occupation/Education: occupation Additional occupation/education comments: [employer] Gender identity (if verbalized by the patient): Female Spiritual care concerns: No Agree to blood products: Yes Comments At the time of my signature, I reviewed and agree with the nursing past medical, surgical, social, and family history. There is no relevant family history pertinent to the patient complaint. Exam Narrative: General: Well-developed, well nourished, in no apparent distress Head: Normocephalic, atraumatic Eyes: Pupils equally round and reactive to light bilaterally, EOM intact, sclera and conjunctive clear, no discharge, lids normal Ears: TMs intact and clear, ear canals clear, no drainage, grossly hearing normal. Nose: Nares patent, clear nasal discharge, no inflammation, no sinus tenderness. Mouth: Oral pharynx without lesions or masses, good dentition, MMM. Neck: Supple, trachea midline, no enlargement of anterior or posterior cervical nodes, no thyroid masses or goiter palpable. Cardio: Regular rate and rhythm, s1 and s2 normal, no murmur appreciated. Resp: Clear to auscultation bilaterally, no rhonchi, rales, wheezing or rubs Course Course Emergency Course: Portions of this record may have been created with voice recognition software. Level of Care: Express Care Visit Vital Signs Vital signs: Vital Signs Temperature 37.2 C 11/10/24 16:41 Pulse Rate 111 H 11/10/24 16:41 Respiratory Rate 16 11/10/24 16:41 Blood Pressure 127/85 11/10/24 16:41 Pulse Oximetry 99 11/10/24 16:41 Oxygen Delivery Room Air 11/10/24 16:41 Temperature 37.2 C 11/10/24 16:41 Pulse Rate 111 H 11/10/24 16:41 Respiratory Rate 16 11/10/24 16:41 Blood Pressure 127/85 11/10/24 16:41 Pulse Oximetry 99 11/10/24 16:41 Oxygen Delivery Room Air 11/10/24 16:41 Vital signs reviewed MDM - URI/Sore Throat MDM Narrative Medical decision making narrative: At the time of visit patient is resting comfortably on the exam table. Patient appears to be nontoxic. Labs: Influenza and strep test were performed. Influenza testing was positive for influenza A. Strep test was negative. We will send strep for culture. Plan: Patient has influenza A. Prescription for Tamiflu was sent to the pharmacy. Send strep for culture. Risk and benefits of the medication was explained to the patient she voiced understanding would like this medication prescribed. Supportive measures were discussed with the patient and they voiced understanding discharge instructions and agrees to treatment plan. Return precautions reviewed Differential Diagnosis Differential diagnosis: Likely upper respiratory infection, otitis media, sinusitis, viral infection, bronchitis, influenza, pharyngitis and other (COVID) Discharge Plan Discharge Clinical Impression: Influenza A Patient Disposition: Home, Self-Care Condition: Stable Instructions: Antibiotic Form, Influenza (ED) Additional Instructions: Influenza A is positive in the clinic today. Strep test was negative. We will send for culture. Take medication as prescribed-Tamiflu Increase fluids and stay well hydrated Tylenol/motrin for pain/fever Flonase and OTC antihistamines as directed Vicks vapor rub to open sinuses Sinus rinses for congestion Cepacol spray, cough drops, throat lozenges, warm tea with honey/lemon, gargle salt water to soothe throat BRAT diet for diarrhea Clear liquids x 24 hours then advance as tolerated for nausea/vomiting Go to the ED if you develop a worsening in your condition- high fever not controlled by Tylenol or Motrin, dehydration, weakness, lethargy, shortness of breath, or chest pain. Follow up with your PCP in 3-5 days if symptoms persist. Patient Language: St Helenian Prescriptions: New oseltamivir [Tamiflu] 75 mg capsule 75 mg PO Q12H 5 Days Qty: 10 0RF No Action calcium carbonate 600 mg calcium (1,500 mg) tablet 600 mg PO DAILY etonogestrel-ethinyl estradiol [NuvaRing] 0.12-0.015 mg/24 hr ring 1 vag ring vaginal ONCE Follow-up/Referrals: Dena Kumar, MEDICAL CENTER DIRECTOR-C [Primary Care Provider] - Stand Alone Forms: Work/School Release IP Time of Disposition: 16:51 Quality NIHSS Nursing Documentation ED NIH nursing documentation: reviewed/agree
[2024-11-10 16:41] VITALS: BP 127/85; PULSE 111; RESP 16; TEMP 37.2; O2SAT 99
[2024-11-10 17:01] LABS: EDINFLUASCREEN Positive (Negative); EDINFLUBSCREEN Negative (Negative); EDSTREPNEGPOS1 Negative (Negative)
== END 2024-11-10 17:01 | disposition home or self-care (01) ==
PROVIDERS: Emergency Provider Nurse Practitioner Family; PCP Clinical Nurse Specialist
DX: J10.1 Influenza due to other identified influenza virus with other respiratory manifestations (principal); F17.210 Nicotine dependence, cigarettes, uncomplicated; E66.01 Morbid (severe) obesity due to excess calories; Z68.30 Body mass index [BMI] 30.0-30.9, adult
CPT/HCPCS: 87081; 87804; 87880; 99213; G0463

== ENCOUNTER 2025-07-14 07:12 | Outpatient (CLI) | payer OTHER, MEDICAID, SELFPAY ==
--- OUTSIDE RECORDS SUMMARY | 2025-07-14 07:20 | XMS_ITS | Clinical Summary ---
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
--- OUTSIDE RECORDS SUMMARY | 2025-07-14 07:20 | XMS_ITS | Encounter Summary ---
Author Organization [facility] Address 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
--- OUTSIDE RECORDS SUMMARY | 2025-07-14 07:20 | XMS_ITS | Clinical Summary ---
Author Organization [facility] [employer] Address [address] [place] [address] Care Team Providers Care Weighter Name Role Phone Ion Fowler MD Primary Care Provider Unavail able Source Comments [facility],non-owned Affiliates and Associated Physician Practices is amultiple site organization consisting of ambulatory clinics and hospital sitesin [place], [place], [place] and [place]. This disclosure is being madepursuant to the Care Everywhere program and may not contain all information available regarding this patient. Last updated 18.[facility] [employer] Allergies No known active allergies Medications * Be aware that medications may not be up to date on this document. Alwaysverify current medications with the patient. naproxen (NAPROSYN) 500 MG tablet Take 1 Tab by mouth 2 times daily. Take with food. 60 Tab 1 04/30/2012 Active metaxalone (SKELAXIN) 800 MG tablet Take 1 Tab by mouth 3 times daily as needed for Muscle Spasms. 30 Tab 0 05/14/2012 Active Active Problems Problem Noted Date Diagnosed Date Fracture, radius 08/07/2010 Overview (08/07/2010): Distal left 05/2005 Strep throat 08/07/2010 Overview (08/07/2010): 03/29/03, 03/06/06, 11/01/08, 09/20/09 Sinusitis, acute 08/07/2010 Overview (08/07/2010): 06/28/10 Routine infant or child health check 08/07/2010 Overview (03/14/2011): Established care: 04/23/2001 04/23/01 5yr, 02/24/03 7yr, 04/06/04 8yr, 03/04/08 12yr, 03/14/11 15yr Personal history of other di sorders of nervous system and sense organs 11/01/2008 Overview (11/01/2008): history of petit mal seizures-diagnosed April 2001, off medications since 12/2004 [place] (allergic rhinitis) Resolved Problems Problem Noted Date Diagnosed Date Resolved Date Pharyngitis 05/10/2008 URI (upper respiratory infection) 05/10/2008 Sinusitis 05/10/2008 Bronchitis 05/10/2008 OE (otitis externa) 05/10/20 08 Injury 05/10/2008 Dermatitis 05/10/2008 Stomatitis 05/10/2008 Fracture 05/10/2008 Routine or child health check 05/10/2008 Seizure, petit mal 8 Overview (02/06/2015): Diagnosed 04/2001, weaned off antiepileptic medication in spring.summer 2003 with no recurrence Immunizations Immunization Administration Dates Next Due DTaP 12/12/1998, 5,06/08/1994,04/12,02/08/1994 HEP A PEDS 2 DOSE 12/20/2011,03/14/2011 HEP B VACCINE, PED/ADOL 10/07/1994,1993, HIB 03/11/1995, 4,04/12/1994,02/08 Human Papilloma Virus Etelvina valent Vaccine 03/14/2011,10/01/2010,06/28/2010 MENINGOCOCCAL ACWY (MCV4P) VAC IM 12/20/2011 MMR 12/12/1998,03/11/1995 POLIO IPV 12/12/1998, 5,04/12/1994,02/08 PPD 04/17/2004 TDAP (7yrs+) 03/21/2006 VARICELLA 03/14/2011,12/12/1998 Family History Medical History Relation Name Comments Migraine Sister 2 1/2-Ruth Al Relation Name Status Comments Maternal Grandmother Hsu Alive Mother Maria Elena Alive Sister 1 Shelley Alive Sister 2 1/2-Ruth Al Alive Social History Tobacco Use Types Packs/Day Years Used Date Smoking Tobacco: Never Assessed Comments No Sex and Gender Information Value Date Recorded Sex Assigned at Not on file 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 Gender Identity Not on file Sexual Orientation Not on file Last Filed Vital Signs Vital Sign Reading Time Taken Comments Blood Pressure 104/72 04/30/2012 9:03 AM CDT Pulse 68 12/20/2011 10:36 AM CDT Temperature 36.1 C (97 F) 04/30/2012 9:03 AM CDT Respiratory Rate 16 12/20/2011 10:36 AM CDT Oxygen Saturation - - Inhaled Oxygen Concentration - - Weight 46.7 kg (103 lb) 04/30/2012 9:03 AM CDT Height 157.5 cm (5' 2) 03/14/2011 10:34 AM CDT Body Mass Index - - Plan of Treatment Health Maintenance Due Date Last Done Comments HIV SCREENING 2008 HEPATITIS C SCREENING 11/18/2011 PAP SMEAR 2014 DTAP/TDAP/TD VACCINES (7 - Td or Tdap) 03/21/2016 03/21/2006, 12/12/1998, 06/10/1995, Additional history exists DEPRESSION SCREENING 09/15/2024 COVID-19 VACCINE (2023- season) 2025 INFLUENZA VACCINE (#1) 2025 ZOSTER VACCINE (1 of 2) 11/23/2043 HEPATITIS B VACCINE Completed 10/07/1994, 1993, 1993 HIB VACCINE Completed 03/11/1995, 05/17, 04/12/1994, Additional history exists HPV VACCINE Completed 03/14/2011, 09/15, 06/28/2010 MENINGOCOCCAL GROUPS A/C/Y/W VACCINE Completed 12/20/2011 MENINGOCOCCAL (Group B) VACCINE SHARED DECISION-MAKING Aged Out No longer eligible based on patient's age to complete this topic PNEUMOCOCCAL VACCINE Aged Out No long er eligible based on patient's age to complete this topic Insurance [facility] MEDICAID - OUT OF STATE * Guarantor: NANCY DUMONT Account Type Relation to Patient Date of Phone Billing Address Personal/Family [address] [place] [phone] [place]ICAID - [place] [facility] * Guarantor: NNACY DUMONT Account Type Relation to Patient Date of Phone Billing Address Personal/Family [address] [place] [phone] [place]ICAID - [place] [facility] * Guarantor: NANCY DUMONT Account Type Relation to Patient Date of Phone Billing Address Personal/Family [address] [place] [address] [place] [address] [facility] Care Teams Weighter Relationship Specialty Start Date End Date Ion Fowler MD RETIRED PCP - General 12/11/21
--- OUTSIDE RECORDS SUMMARY | 2025-07-14 07:20 | XMS_ITS | Clinical Summary ---
Author Organization [facility] Address [address] [place] [address] Care Team Providers Care Medical Assembly Name Role Phone Unavailable Primary Care Provider Unavailabl e Social History Tobacco Use Types Packs/Day Years Used Date Smoking Tobacco: Never Assessed Comments Unknown Sex and Gender Information Value Date Recorded Sex Assigned at Not on file Legal Sex Female 5:13 PM CDT Gender Identity Not on file Sexual Orientation Not on file Plan of Treatment Health Maintenance Due Date Last Done Comments Cervical Cancer Screening Pa p Smear (Age 30 to 64) Every 3 Years 1993 Annual Physical 1996 Hepatitis C 11/23/2011 DTaP, Tdap and Td Vaccines ( 1 - Tdap) 2012 Hepatitis B Vaccines (1 of 3 - 19+ 3-dose series) 2012 HPV Vaccines (1 - 3-dose SCD M series) 2020 Cervical Cancer Screening Pa p with HPV Testing (Age 30 to 64) Every 5 Years 11/23/2023 Cervical Cancer Screening with HPV 11/23/2023 COVID-19 Vaccine ( - 2024-2 6 season) 2025 Influenza Adult (#1) 2025 Hepatitis A Vaccines Aged Out No long er eligible based on patient's age to complete this topic Meningococcal B Vaccine Aged Out No l onger eligible based on patient's age to complete this topic Meningococcal Vaccine Aged Out No abdon jayesh eligible based on patient's age to complete this topic Pneumococcal Vaccine: Pediat rics (0 to 5 Years) and At-Risk Patients (6 to 49 Years) Aged Out No longer eligible b ased on patient's age to complete this topic RSV Immunizations Under 20 Months Aged Out No longer eligible based on patient's age to complete this topic
[2025-07-14 07:49] LABS: Hematocrit 44.8 % (37.0-47.0); Hemoglobin 14.9 g/dL (12.0-15.0); Mean Corpuscular HGB Conc 33.3 g/dl (32-36); Mean Corpuscular Hemoglobin 30.2 pg (26-34); Mean Corpuscular Volume 90.9 fl (80-100); Platelet Count Result 218 k/mm3 (150-375); Red Blood Count 4.93 M/mm3 (4.2-5.4); White Blood Count 9.4 K/mm3 (4.5-10.0)
[2025-07-14 08:12] LABS: Alanine Aminotransferase 28 U/L (6-35); Albumin Level 4.5 g/dL (3.5-5.1); Alkaline Phosphatase 85 U/L (38-126); Anion Gap 10 mmol/L (4-12); Aspartate Amino Transferase 29 U/L (14-36); Bilirubin,Total 0.6 mg/dL (0.2-1.3); Blood Urea Nitrogen 12 mg/dL (7-17); Calcium 9.3 mg/dL (8.4-10.2); Carbon Dioxide 23 mmol/L (22-30); Chloride 105 mmol/L (98-107); Cholesterol 191 mg/dL (0-200); Estimated Glomerular Filt Rate > 60; Glucose 88 mg/dL (65-110); HDL Direct 36 mg/dL; Potassium 4.0 mmol/L (3.4-5.0); Sodium 138 mmol/L (137-145); Total Protein 7.6 g/dL (6.3-8.2); Triglycerides 144 mg/dL (<150)
[2025-07-14 08:20] LABS: Free T4 Free Thyroxine 1.02 ng/dL (0.78-2.19)
[2025-07-14 08:27] LABS: Hemoglobin A1C 5.1 % (<5.7)
[2025-07-14 08:47] LABS: Thyroid Stimulating Hormone 1.400 uIU/mL (0.465-4.680)
[2025-07-14 08:52] LABS: HIV 1/2 Ab P24 Ag Result Negative (Negative)
[2025-07-14 09:41] LABS: Syphilis IgG/IgM Antibody Non-Reactive (Nonreactive)
[2025-07-14 09:45] LABS: Hepatitis B Surface Antigen Negative (Negative)
[2025-07-14 09:51] LABS: HAV RESULT Negative (Negative); Hepatitis B Core IgM Result Negative (Negative)
== END 2025-07-14 07:13 | disposition home or self-care (01) ==
PROVIDERS: PCP Clinical Nurse Specialist
DX: Z01.419 Encounter for gynecological examination (general) (routine) without abnormal findings (principal); E13.21 Other specified diabetes mellitus with diabetic nephropathy; Z11.3 Encounter for screening for infections with a predominantly sexual mode of transmission; Z11.4 Encounter for screening for human immunodeficiency virus [HIV]
CPT/HCPCS: 36415; 80053; 80061; 80074; 82306; 83036; 84439; 84443; 85027; 86593; 86703; G0432

== ENCOUNTER 2025-09-13 09:35 | Outpatient (CLI) | payer OTHER, MEDICAID, SELFPAY ==
--- OUTSIDE RECORDS SUMMARY | 2025-09-13 09:50 | XMS_ITS | Clinical Summary ---
Author Organization [facility] [employer] Address [address] [place] [address] Care Team Providers Care Asphalt Worker Name Role Phone Ion Fowler MD Primary Care Provider Unavail able Source Comments [facility],non-owned Affiliates and Associated Physician Practices is amultiple site organization consisting of ambulatory clinics and hospital sitesin [place], [place], [place] and [place]. This disclosure is being madepursuant to the Care Everywhere program and may not contain all information available regarding this patient. 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 MEDICAID - OUT OF STATE * Guarantor: NANCY DUMONT Account Type Relation to Patient Date of Phone Billing Address Personal/Family [address] [place] [id number] [place]ICA[place] - [place] [facility] * Guarantor: NANCY DUMONT Account Type Relation to Patient Date of Phone Billing Address Personal/Family [address] [place] [id number] [place] [facility] * Guarantor: NANCY DUMONT Account Type Relation to Patient Date of Phone Billing Address Personal/Family [address] [place] [address] [place] [facility] Care Teams Asphalt Worker Relationship Specialty Start Date End Date Ion Fowler MD RETIRED PCP - General 12/11/21
--- OUTSIDE RECORDS SUMMARY | 2025-09-13 09:50 | XMS_ITS | Clinical Summary ---
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 PLAN [facility]
--- OUTSIDE RECORDS SUMMARY | 2025-09-13 09:50 | XMS_ITS | Encounter Summary ---
Author Organization [facility] Address 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
--- OUTSIDE RECORDS SUMMARY | 2025-09-13 09:50 | XMS_ITS | Clinical Summary ---
Author Organization [facility] Address [address] [place] [address] Care Team Providers Care Brand Development Manager Name Role Phone Unavailable Primary Care Provider [...]
[2025-09-13 10:07] LABS: Add Urine Microscopic? YES; Appearance Urine Clear (Clear); Glucose Urine UA Negative (Negative); Leukocyte Esterase Ur Trace LEU/UL (Negative); Nitrate Urine Positive (Negative); Non Pathogenic Casts 0-2; Specific Grav Ur 1.007 (1.001-1.035)
== END 2025-09-13 09:36 | disposition home or self-care (01) ==
PROVIDERS: PCP Clinical Nurse Specialist; Visit Provider Clinical Nurse Specialist
DX: R39.9 Unspecified symptoms and signs involving the genitourinary system (principal)
CPT/HCPCS: 36415; 81001; 84702; 87077; 87086; 87186